=== PATIENT | female | born 1975 | race Caucasian/White ===

== ENCOUNTER 2023-08-22 10:06 | Emergency (ER) | payer BC, SELFPAY ==
[2023-08-22 10:12] VITALS: BP 118/74
--- NOTE | 2023-08-22 11:03 | ED.GENMED ---
History of Present Illness
General
Chief Complaint: Musculo-Skeletal Complaint
Source: patient
Exam Limitations: none
Time Seen by Provider: 08/22/23 10:49
Nursing documentation reviewed up to this point in time: agreed with
Travel History
Have you had any contact with someone who has COVID-19?: No
Do you have any symptoms of coronavirus? Fever > 100 degrees, chills, cough, shortness of breath, sore throat, loss of taste or smell, muscle aches, or headache?: No
History of Present Illness
History of Present Illness:
Patient is a 47-year-old female who presents to the ER complaining of right foot ankle pain. Patient twisted her right ankle yesterday while wearing platform shoes. She has pain with ambulation. Patient took ibuprofen/Advil around 8 AM. She
denies any other injuries.
Past History
Past History
ED Past Medical History: Psychiatric (depression)
ED Past Surgical History: None
Patient has exhibited threatening behavior?: No
Social History
Tobacco: Smoker
Alcohol: Occasional
Drug: None
Personal:
Living: with family
Employment: Employed
Review of Systems
Review of Systems
Allergies reviewed?: Yes
All Other Systems: ROS reviewed and negative except as documented in HPI and ROS
Constitutional: Reports no symptoms
Musculoskeletal: Reports other (right ankle pain )
Skin: Reports no symptoms
Neurological: Reports no symptoms
Psychiatric: Reports no symptoms
Phy Exam
General Physical Exam
General Presentation: no apparent distress
General age: appears stated age
General Skin: warm and dry
General Habitus: normal
General Mental: alert
General Hydration: appears well hydrated
Neurological Exam
Neurological Exam: alert
Musculoskeletal Exam
Musculoskeletal Exam: other (Right lower extremity strong pulses mild swelling to right lateral ankle mildly tender to proximal fifth metatarsal and on lateral ankle below fibula, normal sensation normal cap refill no proximal tib-fib tenderness)
Skin Exam
Skin Exam: normal color and warm/dry
Psychiatric Exam
Psychiatric Exam: normal mood/affect
Course
Orders/Labs/Results
Orders:
Orders
08/22/23 10:45
CR Ankle - Right Min 3 Views * Urgent
Comment:
Reason For Exam: injury/pain
08/22/23 11:03
Foot, Right 3 View [CR Foot - Right Min 3 Views] Urgent
Comment:
Reason For Exam: trauma
08/22/23 11:06
Acetaminophen [Tylenol] 1,000 mg PO NOW STA
08/22/23 11:47
Navjot Wrap Right-Treatment ONCE
08/22/23 11:48
Air Splint Right-Treatment ONCE
Crutches-Treatment ONCE
Vital Signs
Initial and Last Documented VS:
Initial Vital Signs
Pulse Resp BP Pulse Ox
83 18 118/74 97
08/22/23 10:12 08/22/23 10:12 08/22/23 10:12 08/22/23 10:12
Last Documented Vital Signs
Pulse Resp BP Pulse Ox
83 18 118/74 97
08/22/23 10:12 08/22/23 10:12 08/22/23 10:12 08/22/23 10:12
MDM/Problems Addressed
Differential Diagnosis Includes:
Not limited to sprain strain fracture
MDM/Problems Addressed:
Symptoms are consistent with sprain will DC with Navjot wrap Aircast and crutches
*Critical Care Note
Total Time (30-74mins, 75-104mins- exclusive of procedures): Not Applicable
ED Attending Note
-
Portions of this chart may have been created with voice recognition software.� Occasional wrong word or��sound alike� substitutions may have occurred due to the inherent limitations of voice recognition software.
Discharge Plan
Departure
Patient Disposition: Home (Routine Discharge)
Date of Disposition: 08/22/23
Time of Disposition: 11:49
Patient with high blood pressure during this ER visit?: No
Covid-19: Not Applicable
Discharge Problem:
Ankle sprain
Instructions: Ankle Sprain (DC)
Prescriptions:
No Action
citalopram 10 MG tablet
10 mg PO DAILY
oxycodone-acetaminophen 5 MG/325 MG tablet
1 tab PO TID PRN (Reason: pain) 5 Days Qty: 15 0RF
xrbofmqg-[id number]-[id number] 1 DROP drops,suspension
4 drp otic (ear) TID 7 Days Qty: 1 0RF
Rx Instructions:
Right ear
Referrals:
Lazarus Maravilla MD [Family Provider] -
Missael Schultz MD [Active] -
Activity Restrictions/Additional Instructions:
As discussed symptoms are consistent with sprain. Wear Navjot wrap and Air splint and use crutches throughout the day with ambulation. Do not bear weight ;use crutches. Keep elevated as much as possible over the next 48 hours. Ice as well for 20
minutes at a time several times a day. Ibuprofen every 8 hours. Follow-up with orthopedics as needed in the next several days. Return if any worsening of symptoms
Interventions
Interventions:
*Risk Screen - Suicide Last Done: 08/22/23 11:18
*Neglect/Abuse Screening Last Done: 08/22/23 11:18
ED- Fall Risk Assessment Last Done: 08/22/23 11:18
*ED COVID-19 Vaccine History Last Done: 08/22/23 11:17
ED-Musculoskeletal Assessment Last Done: 08/22/23 11:18
Discharge Date and Time
Print Language: KAZAKH
[2023-08-22] MEDS: TYLENOL 1000 MG PO (11:41)
--- NOTE | 2023-08-22 12:43 | EDRN ---
Reviewed discharge instructions with patient. Verbalized understanding. Demonstrated proper use of crutches.
[2023-08-22 12:44] VITALS: BP 122/76
== END 2023-08-22 12:10 | disposition home or self-care (01) ==
LOC: EMR 10:06
PROVIDERS: EMERGENCY PHYSICIAN Emergency Medicine; FAMILY PHYSICIAN Family Medicine
DX: S93.401A Sprain of unspecified ligament of right ankle, initial encounter (principal); X50.1XXA Overexertion from prolonged static or awkward postures, initial encounter; F17.200 Nicotine dependence, unspecified, uncomplicated
CPT/HCPCS: 99283; 73610; 73630

== ENCOUNTER 2024-10-12 06:29 | Day surgery (SDC) | payer BC, SELFPAY | END 2024-10-12 12:19 | disposition home or self-care (01) | LOC: GI 06:29 | PROVIDERS: ATTENDING PHYSICIAN Internal Medicine; FAMILY PHYSICIAN Family Medicine | DX: Z12.11 Encounter for screening for malignant neoplasm of colon (principal); K64.8 Other hemorrhoids; D12.8 Benign neoplasm of rectum; K63.5 Polyp of colon; Z83.719 Family history of colon polyps, unspecified | CPT/HCPCS: 45385; 88305 ==

== ENCOUNTER → 2024-11-30 14:32 | Outpatient (REF) | payer BC, SELFPAY | LOC: WDC 14:32 | PROVIDERS: ATTENDING PHYSICIAN Family Medicine | DX: Z12.31 Encounter for screening mammogram for malignant neoplasm of breast (principal) | CPT/HCPCS: 77063; 77067 ==

== ENCOUNTER 2025-04-12 06:20 | Day surgery (SDC) | payer BC, SELFPAY | END 2025-04-12 09:59 | disposition home or self-care (01) | LOC: GI 06:20 | PROVIDERS: ATTENDING PHYSICIAN Internal Medicine | DX: Z12.11 Encounter for screening for malignant neoplasm of colon (principal); K64.9 Unspecified hemorrhoids; K57.30 Diverticulosis of large intestine without perforation or abscess without bleeding; K63.5 Polyp of colon; Z86.0101 Personal history of adenomatous and serrated colon polyps | CPT/HCPCS: 45331; 88305 ==